=== PATIENT | male | born 1960 | race Caucasian/White ===

== ENCOUNTER 2019-08-21 09:23 | Outpatient (CLI) | payer OTHER, BC ==
[~2019-08-21 09:23] MED LIST: ALLO300T PO; AMLO5TAB4 PO; ASCO10004 PO; BENA20TA54 PO; CHOL10003 PO; OMEG1CAP23 PO; VITA1CAP PO; ZOLP10TA PO
== END 2019-08-21 23:59 | disposition home or self-care (01) ==
LOC: WOUND 09:23
PROVIDERS: ATTEND Family Medicine
DX: T81.31XA Disruption of external operation (surgical) wound, not elsewhere classified, initial encounter (principal); I10 Essential (primary) hypertension; G89.4 Chronic pain syndrome; M48.062 Spinal stenosis, lumbar region with neurogenic claudication; Z96.642 Presence of left artificial hip joint; Y83.8 Other surgical procedures as the cause of abnormal reaction of the patient, or of later complication, without mention of misadventure at the time of the procedure; Y92.89 Other specified places as the place of occurrence of the external cause
CPT/HCPCS: 11042; 99205; 99215

== ENCOUNTER 2019-09-04 09:02 | Outpatient (CLI) | payer OTHER, BC | END 2019-09-04 23:59 | disposition home or self-care (01) | LOC: WOUND 09:02 | PROVIDERS: ATTEND Family Medicine | DX: T81.31XD Disruption of external operation (surgical) wound, not elsewhere classified, subsequent encounter (principal); E11.9 Type 2 diabetes mellitus without complications; M48.062 Spinal stenosis, lumbar region with neurogenic claudication; G89.4 Chronic pain syndrome; I10 Essential (primary) hypertension; M20.11 Hallux valgus (acquired), right foot; M19.042 Primary osteoarthritis, left hand; Z96.641 Presence of right artificial hip joint; Y83.8 Other surgical procedures as the cause of abnormal reaction of the patient, or of later complication, without mention of misadventure at the time of the procedure | CPT/HCPCS: 97602 ==